=== PATIENT | female | born 1960 | race Caucasian/White ===

== ENCOUNTER 2016-04-23 05:00 | Inpatient (IN) | payer MEDICAID ==
[2016-04-22 15:50] LABS: BASOPHILS 0.3 % (0.0-2.0); EOSINOPHILS 0.9 % (0-7); HEMATOCRIT 39.8 % (36.0-48.0); HEMOGLOBIN 13.5 g/dL (12-16); IMMATURE GRANULOCYTES 0.1 % (0-5); LYMPHOCYTES 36.5 % (15-50); MCH 31.4 pg (26.0-34.0); MCHC 33.9 g/dL (31.0-37.0); MCV 92.6 fL (80.0-100.0); MEAN PLATELET VOLUME 11.2 fL (7.4-10.4); MONOCYTES 8.2 % (2-11); PLATELET COUNT 232 10x3/uL (130-400); RDW 12.9 % (11.5-14.5); WBC 10.9 10x3/uL (4.8-10.8)
[2016-04-22 15:53] LABS: APPEARANCE HAZY (CLEAR); BILIRUBIN NEGATIVE (NEGATIVE); COLOR YELLOW (YELLOW); GLUCOSE NEGATIVE (NEGATIVE); KETONE NEGATIVE (NEGATIVE); LEUKOCYTE ESTERASE 2+ (NEGATIVE); NITRITE POSITIVE (NEGATIVE); PROTEIN NEGATIVE (NEGATIVE); SPECIFIC GRAVITY 1.015 (1.005-1.020); UROBILINOGEN NORMAL (NORMAL)
[2016-04-22 15:54] LABS: RED CELLS - URINE 0-5 /hpf (0-5); WHITE CELLS - URINE 25-50 /hpf (0-5)
[2016-04-22 15:55] LABS: BACTERIA MANY /hpf (NONE SEEN)
[2016-04-22 16:14] LABS: CALC OSMOLALITY 283 mosm/kg (275-300); CALCIUM 9.6 mg/dL (8.5-10.1); CARBON DIOXIDE 27.8 mmol/L (21.0-32.0); CHLORIDE - SERUM 105 mmol/L (98-107); CREATININE - SERUM 0.8 mg/dL (0.6-1.3); GLUCOSE 101 mg/dL (74-106); POTASSIUM - SERUM 3.7 mmol/L (3.5-5.1); SODIUM 141 mmol/L (136-145); UREA NITROGEN 22 mg/dL (7-18); eGFR NON AFRICAN AMERICAN 79 mL/min (90-120)
[~2016-04-23] VITALS: Ht 157.5 cm; Wt 93.2 kg
[2016-04-23] VITALS (15 sets, daily range): BP systolic 116–169; BP diastolic 68–98; Ht 157.5 cm; Wt 93.2 kg
[~2016-04-23 05:00] MED LIST: AMBIEN10 MG PO; ASPIRIN81 MG PO; HYDROCODONE-APA1 TAB PO; METOPROLOL TART50 MG PO; NORVASC2.5 MG PO; NORVASC5 MG PO; PRINIVIL20 MG PO; SOMA350 MG PO; XANAX0.5 MG PO; ZETIA10 MG PO
--- NOTE | 2016-04-23 10:39 | HP ---
PATIENT: MAY MARROQUIN MEDICAL RECORD: [id number] ACCOUNT: [id number] LOC[place] [place] [place] 64 ADMISSION DATE: 04/23/16 HISTORY AND PHYSICAL EXAMINATION CHIEF COMPLAINT: Neck pain. HISTORY OF PRESENT ILLNESS: This is a relatively healthy white female who presented to our office with persistent neck pain and left upper extremity pain associated with paraesthesia. She rates her pain 10/10. She describes it as a deep burning pain, left arm is worse than right. SHE IS INTOLERANT TO NEEDLES, has a phobia regarding that and has been unable to have any injections. She is a patient of Dr. Mosquera and she has generalized anxiety disorder. She has not had any physical therapy or chiropractic treatment. She has had this pain ongoing since 1999, but it became much worse in December with no precipitating event. PAST MEDICAL HISTORY: Significant for general anxiety disorder, hypertension, blurry vision and occasional dizziness. PAST SURGICAL HISTORY: Hysterectomy and cholecystectomy. FAMILY HISTORY: Her father of a heart attack. Her mother of liver disease. SOCIAL HISTORY: She is single, her grandchildren live with her. ALLERGIES: PENICILLIN. MRI was done at [facility]. She has her disk and is to bring it with her. She has multilevel degenerative disc disease C5-C6, C6-C7 with a herniated disc at C5-C6 and C6-C7. REVIEW OF SYSTEMS: She denies any recent chest pain, shortness of breath or weight changes. PHYSICAL EXAMINATION: HEENT: She is normocephalic. Pupils are equal, reactive to light. CHEST: Clear bilaterally to auscultation. HEART: S1 and S2. ABDOMEN: Soft, bowel sounds present. NECK: He has decreased range of motion. EXTREMITIES: She has bilateral equal electronics tester, dorsiflexion and plantarflexion are intact. IMPRESSION: Cervical radiculopathy. PLAN: C5-C6, C6-C7 ACDF with [place]. The risk and benefits of surgery have been explained to her in detail. Risks include bleeding, failure to relieve symptoms, problems with anesthesia and . Time was allowed for questions, questions were answered. The patient wishes to proceed with surgery. TRANSINT:[id number] Voice Confirmation ID: [id number] DOCUMENT ID: [id number] HISTORY AND PHYSICAL [id number] MAY MARROQUIN Dictated By: OLGA ROJAS I have interviewed/examined the above patient and agree with these documented findings. ANATOLY ALONSO MD at 1039 at 1224 CC: [id number] DICTATION DATE: 04/22/16 1439 INDUCTION HEAT TREATER: 04/22/16 1455 ADM IN [id number] [place] [address]
--- NOTE | 2016-04-23 11:30 | NUR ---
RECIEVED PT TO ROOM FROM RECOVERY. CONNECTED TO ICU MONITORS. NO SIGNS OF ACUTE DISTRESS NOTED AT THIS TIME. C-COLLAR IN PLACE. INCISION TO NECK WELL APPROXIMATED. NO BLEEDING NOTED. WILL CONTINUE TO ASSESS FOR CHANGES. CALL LIGHT IN REACH. BED IN LOW POSITION. BED ALARM ON.
--- NOTE | 2016-04-23 13:00 | NUR ---
PT REMAINS STABLE. C/O SOME PAIN IN NECK. REPOSITIONED PILLOW FOR COMFORT. C-COLLAR ADJUSTED.
--- NOTE | 2016-04-23 15:00 | NUR ---
FAMILY AT BEDSIDE. DENIES NEEDS AT THIS TIME.
--- NOTE | 2016-04-23 15:11 | NUR ---
* Is the patient Alert and Oriented? Yes 0 * How many steps to enter\exit or inside your home? 4 0 * PCP DR. KAYE 0 * Pharmacy [facility]. 0 * Preadmission Environment Home with Family 0 * ADLs Independent 0 * Equipment None 0 * List name and contact numbers for known caregivers / representatives who currently or will assist patient after discharge: DAUGHTER: KIANNA PORTILLO [phone] * Community resources currently utilized None 0 * Additional services required to return to the preadmission environment? No 0 * Can the patient safely return to the preadmission environment? Yes 0 * Has this patient been hospitalized within the prior 30 days at any hospital? No 0 PATIENT STATES SHE LIVES AT HOME WITH HER DAUGHTER. PATIENT WAS INDEPENDENT PRIOR TO COMING TO THE HOSPITAL. PATIENT STATES HER DAUGHTER, KIANNA WILL BE AVAILABLE TO DRIVE HER HOME AT DISCHARGE. PATIENT 'S PCP IS DR. KAYE. SHE GETS HER MEDS AT [facility] ON [address]. SHE DENIES USE OF ANY EQUIPMENT. SHE DENIES EVER HAVING HOME HEALTH CARE. PATIENT STATES THERE ARE 4 STEPS TO ENTER HER HOME. PATIENT DENIES ANY DISCHARGE NEEDS AT THIS TIME.
--- NOTE | 2016-04-23 19:15 | NUR ---
REPORT RECIEVED, SHIFT ASSESSMENT COMPLETE, PT IS ALERT AND ORIENTED, ON RA WITH 97% O2 SAT. LUNGS CLEAR IN ALL LOBES, S1S2, CM-SB, PATENT LEFT FA PIV S/L, INCISION TO RIGHT NECK IS CDI, DRSG TO RIGHT NECK BROOKE DRAIN IS CDI, BLOODY DRAINAGE IN DRAIN, SOFT COLLAR NOTED, ABDOMEN IS SOFT AND ROUND WITH ACTIVE BS, BP AT BEDSIDE, NO EDEMA NOTED, ALL PPP, VSS, CALL LIGHT IN REACH
--- NOTE | 2016-04-23 20:40 | NUR ---
PT C/O OF 8/10 INCISIONAL PAIN, ORDERED PAIN MED GIVEN
--- NOTE | 2016-04-23 21:15 | NUR ---
PAIN NOW 2/10, PT RESTING COMFORTABLY
--- NOTE | 2016-04-23 23:11 | NUR ---
REASSESSMENT COMPLETE, NO CHANGES NOTED, PT RESTING AT THIS TIME, VSS, CALL LIGHT IN REACH
[2016-04-24] VITALS (9 sets, daily range): BP systolic 123–168; BP diastolic 79–99
--- NOTE | 2016-04-24 01:20 | NUR ---
PT RESTING AT THIS TIME, WILL CON'T TO MONITOR
--- NOTE | 2016-04-24 03:24 | NUR ---
REASSESSMENT COMPLETE, NO CHANGES NOTED, PT C/O OF 9/10 PAIN, ORDERED PAIN MED GIVEN,
--- NOTE | 2016-04-24 05:10 | NUR ---
PT RESTING AT THIS TIME, WILL CON'T TO MONITOR
[2016-04-24] MEDS ORDERED: ROBAXIN-750750 MG PO (06:53)
[2016-04-24] MEDS ORDERED: VALIUM5 MG PO (06:55)
[2016-04-24] MEDS ORDERED: HYDROCODON-ACE1 EAC7 PO (06:55)
--- NOTE | 2016-04-24 07:00 | OP ---
PATIENT NAME: MAY MARROQUIN MEDICAL RECORD: [id number] :64 LOCATION:[facility] D.2307 ADMISSION DATE:04/23/16 SURGEON: ANATOLY ALONSO MD DATE OF OPERATION: 04/23/2016 PREOPERATIVE DIAGNOSIS: Bilateral C6 and C7 radiculopathy. POSTOPERATIVE DIAGNOSIS: Bilateral C6 and C7 radiculopathy. PROCEDURES PERFORMED: Anterior approach to the cervical spine for: 1. Application of intervertebral biomechanical devices at C5-C6 and C6-C7. 2. Anterior plate and bilateral vertebral body screw fixation from C5 to C7. 3. Discectomy with bilateral foraminotomies at C5-C6 and C6-C7. 4. Anterior interbody arthrodesis at C5-6 and C6-C7 with endplate preparation. 5. Use of intraoperative microscope with microdissection technique. ESTIMATED BLOOD LOSS: 50 mL. NEURO MONITORING: No changes in SSEPs from baseline. IMPLANTS: [place] anterior cervical: 1. A 6 mm x 14 mm x 16 mm x 4 degree AVS cage at C5-C6. 2. A 5 mm x 14 mm x 16 mm x 4 degree AVS cage at C6-C7. 3. A 32-mm Tempus plate. 4. A 16-mm variable angle self-drilling screws at C5 and C6 and fixed angle screws of the same size at C7. COMPLICATIONS: None apparent. HISTORY OF PRESENT ILLNESS: May Marroquin is a very pleasant 55-year-old female who presented to clinic with progressive severe upper extremity pain consistent with C6 and C7 radiculopathy, left side greater than right. This is refractory to conservative therapy. Imaging was consistent with bulging disc at C5, C6, C7 with resulting bilateral neural foraminal stenosis. I had an extensive discussion with her regarding her presentation and imaging findings and the options for continued conservative therapy versus operative decompression in the form of C5-C6 and C6-C7 ACDF. She ultimately chose to undergo the operative decompression. I had an extensive discussion with her regarding the risks and benefits of each course of therapy and the risks and benefits of surgery including malpositioned hardware, damage to surrounding structures including the food pipe, the wind pipe, the carotid bundle and the need for further surgery. She understood and freely consented to go forth with surgery. DESCRIPTION OF PROCEDURE: Ms. Marroquin was identified by the anesthesia team and transferred to the operative theater. She was gently transferred to a supine position on the operative bed where general endotracheal anesthesia commenced and all appropriate lines and tubes were placed. A scapular roll was placed underneath the scapula and her head was placed in extension. Shoulders were taped down to facilitate visibility on lateral fluoroscopy. Using lateral fluoroscopy, incision of the appropriate level was marked. The area was prepped and draped. A timeout was performed prior to initiation of procedure and agreed to by those present. The patient did receive 10 mg IV dexamethasone as well as IV vancomycin prior to start of the procedure. A #10 blade was used to take the skin incision down to the level of the subcutaneous fat after infiltration of OPERATIVE REPORT [id number] MAY MARROQUIN local anesthetic. Bovie electrocautery was used to transect the platysma. Metzenbaum scissors were used to undermine the platysma rostrally and caudally. The fascial plane between the carotid bundle laterally, and the tracheoesophageal bundle medially was identified and bluntly dissected down to the anterior cervical spine. A snap was affixed to C5-C6 disc space and confirmed to be at the correct disc space on lateral fluoroscopy. The low power Bovie electrocautery was used to outline the disc and to reflect the longus colli bilaterally and cleaned out the appropriate portions of the C5, C6 and C7 vertebral bodies. A self-retaining TrimLine retractor was then seated deep to the longus colli. [place] distraction pins were placed under lateral fluoroscopy and a square cut was made in the disc space. The microscope was brought in the field and used to plate fixation later in the case. Initial discectomy was performed with pituitary rongeurs and [place] distraction was then gently deployed. Using a combination of sood elevator, pituitary rongeurs, curettes and Kerrison rongeurs, the discectomy and bilateral foraminotomy was performed. The PLL was resected. Small amount of epidural hemorrhage was controlled with Surgiflo hemostatic matrix. There was no significant hemorrhage. Prior to placement of the 6 mm trial graft, which was found to be the appropriate size on the lateral x-ray. The 6 mm graft was packed with Vitoss bone allograft and then inserted under lateral fluoroscopy into the appropriate depth. The C5 [place] pin was removed and a small amount of bone wax was used to fill the bony defect to reduce and stop the resulting small hemorrhage. The [place] pin was repositioned under lateral fluoroscopy to the C7 vertebral body. The self-retaining retractors had been moved inferiorly and seated deep to the longus colli for this level. The C7 [place] pin was then placed under lateral fluoroscopy. The microdiscectomy at C6-C7 proceeded in the exact same fashion and the PLL was resected again. A blunt nerve hook was again used to confirm appropriate bilateral foraminotomies at the end of the discectomy. The endplates at both levels were prepared for arthrodesis. Now, stripping away of all soft tissue. The PLL again was resected at C6-C7 to further the decompression. Surgiflo hemostatic matrix was used to control small amount of epidural hemorrhage and rinsed away as occurred at the previous level. A 5-mm trial was placed at this level and found to be adequate under lateral fluoroscopy. The 5-mm cage was packed with Vitoss bone graft and inserted under lateral fluoroscopy to the appropriate depth. The [place] pins were sequentially removed and bone wax placed in their bony defects. The microscope was taken out of field and the 32-mm Tempus plate was then lined and positioned to the appropriate position on lateral fluoroscopy. Using the drill guide and an 11 mm drill with variable angle occurring at C5 and C6 and fixed angle occurring at C7, the screw tracts were developed with the drill. The screws were placed at each level and seated down to their final depth. Screw placement was confirmed to be appropriate on lateral fluoroscopy. The screw heads were confirmed to be seated to the appropriate depth and the locking mechanism was employed and double checked to be activated at each level. A copious amount of irrigation was used in the operative field . There was no significant hemorrhage prior to closure. The self-retaining retractors were removed and the area was again appreciated for hemorrhage and finally irrigated. A 10-Turkish round drain was tunneled away from the incision and cut to size and laid over the hardware. A 3-0 Vicryls were used in interrupted fashion to reapproximate the platysma muscle. The skin was closed with a running subcuticular 4-0 Monocryl and the drain was sutured into place with 3-0 Vicryl suture. The area was cleaned with a wet and dry dressing and Dermabond skin glue was then placed. Drapes were taken down and the patient was turned to the anesthesia team for reversal and extubation. There were no departure from the SSEP baselines throughout the procedure. There OPERATIVE REPORT [id number] MAY MARROQUIN were no apparent complications. All sponge and needle counts were correct times 2 at the end of the case. I updated the patient's cousin in the waiting room immediately after the procedure regarding the course of the procedure and all questions were answered. TRANSINT:[id number] Voice Confirmation ID: [id number] DOCUMENT ID: [id number] ANATOLY ALONSO MD at 0700 CC: [id number] DICTATION DATE: 04/23/16 1051 AUTOMOTIVE TECHNICIAN INSTRUCTOR: 04/23/16 1201 ADM IN [facility] [address] [id number]
--- NOTE | 2016-04-24 13:33 | NUR ---
0800 AM ASSESMENT IS COMPLETE SEE FLOW SHEET FOR FINDINGS.. PT IS AWAKE AND ALERT.. DR ALONSO HAS BEEN IN AND SEEN PT.. DC ORDERS WRITTEN.. PT STATES THAT HER TRANSPORTATION WOULD BE HERE TO PICK HER UP AFTER LUNCH.. 0900 WITHOUT VISITORS REGULAR DIET SERVED AND PT FEEDING SELF.. MEDS GIVEN.. 1100 DISCHRGE PAPERWORK INITIATED.. PT BROOKE DRAIN DCd .. 1200 LUNCH SERVED AND PT IS FEEDING SELF.. 1300 PIV DCd AND DISCHARGE PAPERS SIGNED BY PT .. PT STATES HER RIDE WILL BE HERE AT 1330..
--- NOTE | 2016-04-24 14:45 | NUR ---
1430 PT FAMILY HERE TO TRANSPORT PT HOME IN PVT CAR.. TRANSPORTED TO FRONT OF [facility] IN WHEELCHAIR..
== END 2016-04-24 14:30 | disposition home or self-care (01) | DRG 473 ==
LOC: D.SDCHOLD 05:00 → D.ICU 05:00 → D.SDCHOLD 07:30 → D.ICU 11:36
PROVIDERS: ADMIT Neurological Surgery
PROC: 0RB30ZZ Excision of Cervical Vertebral Disc, Open Approach (ICD-10-PCS; 2016-04-23)
PROC: 0RG20A0 Fusion of 2 or more Cervical Vertebral Joints with Interbody Fusion Device, Anterior Approach, Anterior Column, Open Approach (ICD-10-PCS; principal; 2016-04-23 07:30)
PROC: 0RG20K0 Fusion of 2 or more Cervical Vertebral Joints with Nonautologous Tissue Substitute, Anterior Approach, Anterior Column, Open Approach (ICD-10-PCS; 2016-04-23 07:30)
DX: M50.122 Cervical disc disorder at C5-C6 level with radiculopathy (principal); M50.123 Cervical disc disorder at C6-C7 level with radiculopathy; I10 Essential (primary) hypertension; F41.1 Generalized anxiety disorder

== ENCOUNTER → 2017-01-22 11:16 | Outpatient (CLI) | payer MEDICAID ==
[2016-04-23 12:23] VITALS: BMI 37.6
[~2017-01-22 11:16] MED LIST changes: +HYDROCODON-ACE1 EAC7 PO; +ROBAXIN-750750 MG PO; +VALIUM5 MG PO
== END | disposition home or self-care (01) ==
LOC: D.MRI 11:16
DX: M54.5 Low back pain (principal)

== ENCOUNTER 2017-06-10 10:23 | Outpatient (CLI) | payer MEDICAID ==
[~2017-06-10] VITALS: Ht 157.5 cm; Wt 62.7 kg
--- NOTE | ~2017-06-10 | OP ---
PATIENT NAME: MAY MARROQUIN MEDICAL RECORD: [id number] :64 LOCATION:D.CAT ADMISSION DATE: SURGEON: LARS ROSALES MD DATE OF OPERATION: 06/10/2017 PROCEDURE: Left heart catheterization, selective coronary angiography, right femoral artery approach (unable to perform radial secondary to radial loop). CATHETERS: A 5-Cameroonian sheath, 5/4 left and right Cherelle, 5/4 pig. The procedure was well tolerated. The patient returned to mckeon, sheath removed. ExoSeal device placed. FINDINGS: Left ventriculography in 30-degree NG view: Normal wall motion, normal systolic function. CORONARY ANATOMY. LEFT MAIN: Left main is free of disease. LAD: Free of disease in the diagonal system. CIRCUMFLEX: Free of disease in the marginal system. RIGHT CORONARY ARTERY: Dominant artery, gives rise to PDA, free of disease. IMPRESSION: Normal systolic function. Normal coronary anatomy. TRANSINT:[id number] Voice Confirmation ID: [id number] DOCUMENT ID: [id number] LARS ROSALES MD at 1341 CC: [id number] DICTATION DATE: 06/10/17 1327 WAITER/WAITRESS THIRD CLASS: 06/10/17 1356 DEP CLI 06/10/17 [facility] [address] [place] [address]
--- NOTE | ~2017-06-10 | HEMODYNAMI ---
PATIENT:MAY MARROQUIN MEDICAL RECORD: [id number] : 64 LOCATION:[facility] ADMISSION DATE: 06/10/17 Generatedon:06/10/201713:25 Patient name: MAY MARROQUIN Patient #: [id number] SSN: : 1960 Date of study: 06/10/2017 Page: Of Hemodynamic Procedure Report Patient Data Patient Demographics Procedure consent was obtained First Name: MAY Gender: Female Last Name: CARA : 1960 Patient #: [id number] Age: 56 year(s) Race: Unknown Additional ID: [id number] Contact details [address]: [address] [place] [address] [place] State: [place] City: [place] Zip code: [address] Past Medical History Allergies Allergen Reaction Date Comments Reported Other allergy 06/10/2017 PCN Admission Admission Data Admission Date: 06/10/2017 Admission Time: 10:23 Height (in.): 5.2 BSA: 0.34 (m2) Height (cm.): 13.21 BMI: 6136.26 (kg/m2) Weight (lbs.): 236 Weight (kg.): 107.05 Lab Results Lab Result Date: 06/10/2017 Lab Result Time: 0:00 Biochemistry Name Units Result Min Max BUN mg/dl 10 --(-*--)-- 7 18 Creatinine mg/dl 0.9 --(-*--)-- 0.6 1.3 CBC Name Units Result Min Max Hemoglobin g/dl 12.9 -*(----)-- 13.5 17.5 Procedure Procedure Types Cath Procedure Diagnostic Procedure [facility] w/Coronaries Sedation Charges Moderate Sedation up to 15 minutes Procedure Description Procedure Date Procedure Date: 06/10/2017 Procedure Start Time: 13:07 Procedure End Time: 13:25 Procedure Staff Name Function Bayron Ordonez MD Performing Physician Raquel Eastman RT Scrub Paul Miguel RN Nurse Amairani Folwer RT Monitor Procedure Data Cath Procedure Fluoroscopy Diagnostic fluoroscopy Total fluoroscopy Time: 1.8 time: 1.8 min min Diagnostic fluoroscopy Total fluoroscopy dose: 517 dose: 517 mGy mGy Contrast Material Contrast Material Type Amount (ml) Isovue 300 55 Entry Location Entry Primary Successful Side Size Upsize Upsize Entry Closure Gibson ccessful Closure Location (Fr) 1 (Fr) 2 (Fr) Remarks Device Remarks Radial Right 6 Fr Mechanical artery Short Compression Femoral Right 5 Fr Exoseal artery Estimated blood loss: 5 ml Diagnostic catheters Device Type Used For End Catheter Placement DIAGNOSTIC Bettendorf 110cm 5 Procedure Fr catheter ([id number]) MULTIPACK JL 4.0 5Fr Left Coronary catheter Angiography MULTIPACK 3DRC 5Fr Right Coronary catheter Angiography MULTIPACK Pigtail 5 Fr LV Angiography catheter Procedure Complications No complications Procedure Medications Medication Administration Route Dosage 0.9% NaCl I.V. 100 ml/hr Oxygen NC 2 l/min Heparin Flush Bag added to field 2 bags (1000units/500ml NS) Lidocaine 2% added to field 20 Radial Cocktail added to field 1 syringe (Verapomil 2mg/Nitro 400mcg/Heparin 1500units) Versed I.V. 2 mg Fentanyl I.V. 100 mcg Versed I.V. 2 mg Fentanyl I.V. 100 mcg Versed I.V. 2 mg Fentanyl I.V. 100 mcg Radial Cocktail I.A. 1 syringe (Verapomil 2mg/Nitro 400mcg/Heparin 1500units) Versed I.V. 2 mg Fentanyl I.V. 100 mcg Versed I.V. 2 mg Hemodynamics Rest BSA: 0.34 (m2) HGB: 12.9 (g/dl) O2 Consumption: Estimated: 32.73 (ml/min) O2 Con sumption indexed: Estimated:96.26 (ml/min/m) Heart Rate: 69 (bpm) Pressure Samples Time Site Value (mmHg) Purpose Heart Use Rate(bpm) 13:18 LV 114/17,19 EDP 85 13:18 AO 139/90(110) Pullback 83 13:18 LV 109/12,14 Pullback 83 Gradients Valve Time Site 1 Site 2 Mean SEP/DFP Peak To Heart Use (mmHg) (sec/min) Peak Rate (mmHg) (bpm) Aortic 13:18 LV AO 0 83 109/12,14 139/90(110) Calculations Valve P-P Mean Valve Index Valve Source Name Gradient Area Flow (cm2) Aortic 0 0 Snapshots Pre Cath Intra NCS Post Cath Vital Signs Time Heart Resp SPO2 etCO2 NIBP (mmHg) Rhythm Pain Sedation Rate (ipm) (%) (mmHg) Status Level (bpm) 12:54:35 78 15 95 32.5 136/79(115) NSR 0 (11) 10(A) , No pain 12:59:26 78 13 94 37 120/81(100) NSR 0 (11) 10(A) , No pain 13:04:15 77 21 94 38.5 121/73(100) NSR 0 (11) 10(A) , No pain 13:09:01 81 13 97 16.6 135/79(119) NSR 0 (11) 10(A) , No pain 13:13:50 86 13 96 19.6 122/74(94) NSR 0 (11) 10(A) , No pain 13:18:37 71 17 92 23.4 110/77(101) NSR 0 (11) 10(A) , No pain 13:23:26 83 15 96 27.2 135/70(98) NSR 0 (11) 10(A) , No pain Medications Time Medication Route Dose Verified Delivered Reason Notes Effectiveness by by 12:58:03 0.9% NaCl I.V. 100 Paul Paul Per ml/hr Lamont Miguel physician RN RN 12:58:17 Oxygen NC 2 l/min Paul Paul Per Lamont Miguel physician RN RN 12:58:29 Heparin Flush added 2 bags Paul Paul used for Bag to Lamont Miguel procedure (1000units/500ml RN RN NS) 12:58:44 Lidocaine 2% added 20ml Paul Paul for local to vial Lorigan Lorigan anesthetic field DUNBAR RN 12:58:55 Radial Cocktail added 1 Paul Paul used for (Verapomil to syringe Lorigan Lorigan procedure 2mg/Nitro field DUNBAR RN 400mcg/Heparin 1500units) 12:59:04 Versed I.V. 2 mg Paul Paul for sedation Lamont Miguel RN RN 12:59:14 Fentanyl I.V. 100 mcg Paul Paul for sedation Lamont Miguel RN RN 13:03:06 Versed I.V. 2 mg Paul Paul for sedation Lamont Miguel RN, RN 13:03:12 Fentanyl I.V. 100 mcg Paul Paul for sedation Lamont Miguel RN, RN 13:07:09 Versed I.V. 2 mg Paul Paul for sedation Lamont Miguel RN, RN 13:07:16 Fentanyl I.V. 100 mcg Paul Paul for sedation Lamont Miguel RN, RN 13:08:15 Radial Cocktail I.A. 1 Paul Bayron for (Verapomil syringe Lorigan José Luis vasodilation 2mg/Nitro RN 400mcg/Heparin 1500units) 13:12:07 Versed I.V. 2 mg Paul Paul for sedation Lamont Miguel RN, RN 13:13:17 Fentanyl I.V. 100 mcg Paul Paul for sedation Lamont Miguel RN, RN 13:22:12 Versed I.V. 2 mg Paul Paul for sedation Lamont Miguel RN, RN Procedure Log Time Note 12:29:37 Time tracking: Regular hours 12:29:42 Plan of Care:Hemodynamics will remain stable., Cardiac rhythm will remain stable., Comfort level will be maintained., Respiratory function will remain adequate., Patient/ family verbilizes understanding of procedure., Procedure tolerated without complication., Recovers from procedure without complications.. 12:29:43 Signed procedure consent form obtained from patient. 12:29:58 H&P Date Dictated: 05/21/2017 Within 30 days and on chart., H&P Addendum completed by physician on day of procedure. (MUST COMPLETE FOR ALL OUTPATIENTS). 12:30:41 Patient allergic to Other allergyPCN 12:31:00 Patient Height : 5.2 inches 12:31:03 Patient Weight : 236 lbs 12:34:32 Lab Result : Creatinine 0.9 mg/dl 12:34:32 Lab Result : BUN 10 mg/dl 12:34:32 Lab Result : Hemoglobin 12.9 g/dl 12:36:05 Paul Miguel RN sent for patient. Start room use. 12:42:42 Patient received from Pre/Post Procedure Room to CCL 1 Alert and oriented. Tansferred to table in Supine position. 12:42:43 Warm blankets applied, and aniket hugger turned on for patient comfort. 12:42:43 Correct patient and procedure confirmed by team. 12:42:45 ECG and BP/O2 sat monitors applied to patient. 12:53:33 Vital chart was started 12:54:17 Rhythm: sinus rhythm 12:54:18 Full Disclosure recording started 12:54:20 Pre-procedure instructions explained to patient. 12:54:20 Pre-op teaching completed and patient verbalized understanding. 12:54:23 Family in patients room. 12:54:24 Patient NPO since Midnight. 12:54:26 Is the patient allergic to Iodine/contrast media? No. 12:54:31 Is patient on blood thinner?No 12:54:32 Patient diabetic? No. 12:54:36 Previous problem with sedation/anesthesia? No ? 12:54:37 Snore? Yes 12:54:37 Sleep apnea? No 12:54:38 Deviated septum? No 12:54:39 Opens mouth fully? Yes 12:54:40 Sticks out tongue? Yes 12:54:41 Airway obstruction? No ? 12:54:43 Dentures? No ? 12:54:45 Pre procedure: right dorsailis pedis pulse 2+ Normal; easily identifiable; not easily obliterated 12:54:47 Modified Parth's test Ulnar < 7 seconds 12:54:49 Patient pain scale 0/10 ?. 12:54:57 IV patent on arrival in left forearm with 0.9% NaCl at [facility]. 12:54:59 Lab results completed and on chart. 12:55:02 Right Radial & Right Groin area was prepped with chlora-prep and draped in sterile fashion 12:55:03 Alarms reviewed by R. N. 12:55:04 Sharps counted by scrub and verified by R.N. 12:55:06 Use device set Radial Dx or PCI 12:55:07 ACIST Syringe (19970) opened to sterile field. 12:55:07 Medline Cath Pack ([id number]) opened to sterile field. 12:55:08 Bag Decanter (2002) opened to sterile field. 12:55:08 SHEATH 6FR Slender ([id number]) opened to sterile field. 12:55:08 DIAGNOSTIC WIRE .035 260cm J wire (538126) opened to sterile field. 12:55:09 ACIST Hand Control (49125) opened to sterile field. 12:55:09 ACIST Manifold (87883) opened to sterile field. 12:55:10 Tegaderm 4 x 4 (1626W) opened to sterile field. 12:55:10 MBrace Wrist Support ([id number]) opened to sterile field. 12:56:52 Baseline sample Acquired. 12:57:01 Zero performed for pressure channel P1 12:58:03 0.9% NaCl 100 ml/hr I.V. was administered by Paul Miguel RN; Per physician; 12:58:17 Oxygen 2 l/min NC was administered by Paul Miguel RN; Per physician; 12:58:29 Heparin Flush Bag (1000units/500ml NS) 2 bags added to field was administered by Paul Miguel RN; used for procedure; 12:58:36 Final Timeout: patient, procedure, and site verified with staff and physician. All members of the team are in agreement. 12:58:39 Right Radial site verified by team. 12:58:41 Physical assessment completed. ASA score P 2 - A patient with mild systemic disease as per Bayron Ordonez MD. 12:58:44 Lidocaine 2% 20ml vial added to field was administered by Paul Miguel RN; for local anesthetic; 12:58:45 Sedation plan: IV Moderate Sedation Medication:Versed, Fentanyl 12:58:55 Radial Cocktail (Verapomil 2mg/Nitro 400mcg/Heparin 1500units) 1 syringe added to field was administered by Paul Miguel RN; used for procedure; 12:59:04 Versed 2 mg I.V. was administered by Paul Miguel RN; for sedation; 12:59:14 Fentanyl 100 mcg I.V. was administered by Paul Miguel RN; for sedation; 13:03:06 Versed 2 mg I.V. was administered by Paul Miguel RN; for sedation; 13:03:12 Fentanyl 100 mcg I.V. was administered by Paul Miguel RN; for sedation; 13:07:04 Procedure started. 13:07:09 Versed 2 mg I.V. was administered by Paul Miguel RN; for sedation; 13:07:09 Local anesthetic to right radial artery with Lidocaine 2% by Bayron Ordonez MD.INITIAL ACCESS ONLY 13:07:16 Fentanyl 100 mcg I.V. was administered by Paul Miguel RN; for sedation; 13:08:15 Radial Cocktail (Verapomil 2mg/Nitro 400mcg/Heparin 1500units) 1 syringe I.A. was administered by Bayron Ordonez MD; for vasodilation; 13:08:31 A 6 Fr Short sheath was inserted into the Right Radial artery 13:08:53 A DIAGNOSTIC Bett[place]f 110cm 5 Fr catheter ([id number]) was advanced over the wire and used for Procedure. Patient has radial loop 13:12:04 Catheter removed. 13:12:07 Versed 2 mg I.V. was administered by Paul Miguel RN; for sedation; 13:12:09 Local anesthetic to right femoral artery with Lidocaine 2% by Bayron Ordonez MD.ADDITIONAL ACCESS 13:12:14 Use device set Multipack Set 13:12:17 DIAGNOSTIC Multipack 5Fr catheter set ([id number]) opened to sterile field. 13:12:23 SHEATH 5FR Burns (IAZ217) opened to sterile field. 13:13:10 A 5 Fr sheath was inserted into the Right Femoral artery 13:13:17 Fentanyl 100 mcg I.V. was administered by Paul Miguel RN; for sedation; 13:13:17 A MULTIPACK JL 4.0 5Fr catheter was advanced over the wire and used for Left Coronary Angiography. 13:15:42 Catheter removed. 13:16:46 A MULTIPACK 3DRC 5Fr catheter was advanced over the wire and used for Right Coronary Angiography. 13:16:56 Catheter removed. 13:17:03 A MULTIPACK Pigtail 5 Fr catheter was advanced over the wire and used for LV Angiography. 13:18:31 LV gram done using NG 13:18:32 LV hemodynamics recorded. 13:18:34 Injector settings: Ml/sec: 10, Volume: 20, 13:18:41 EF : 55 % 13:18:50 Catheter removed. 13:18:58 Sheath removed intact; hemostasis achieved with Mechanical Compression to the Right Radial artery. 13:19:14 EXOSEAL 5Fr (EX500) opened to sterile field. 13:19:17 Procedure ended.(Physican Out) 13:19:56 Sheath removed intact; hemostasis achieved with Exoseal to the Right Femoral artery. 13:20:05 Fluoroscopy time 01.80 minutes. 13:20:09 Fluoroscopy dose: 517 mGy 13:20:09 Flurop Dose total: 517 13:20:12 Contrast amount:Isovue 300 55ml. 13:20:13 Sharps counted by scrub and verified by R.N. 13:20:17 TR band inflated with 12cc of air. 13:20:18 Insertion/operative site no bleeding no hematoma. 13:20:27 TR BAND Standard ([id number]) opened to sterile field. 13:22:12 Versed 2 mg I.V. was administered by Paul Miguel RN; for sedation; 13:22:27 Post-op/insertion site Right Femoral artery dressed using a 4 x 4 and Tegaderm. 13:22:31 Post right femoral artery:stable, clean and dry 13:22:36 Post right radial artery:stable, clean and dry 13:22:38 Post Procedure Pulses reassessed and unchanged 13:22:41 Post-procedure physical assessment completed. ASA score P 2 - A patient with mild systemic disease as per Bayron Ordonez MD. 13:22:43 Post procedure rhythm: unchanged. 13:22:46 Estimated blood loss: 5 ml 13:22:47 Post procedure instruction explained to patient.Patient verbalizes understanding. 13:22:48 Patient needs reinforcement of post procedure teaching. 13:22:57 Procedure type changed to Cath procedure, Diagnostic procedure, LHC, LHC w/Coronaries, Sedation Charges, Moderate Sedation up to 15 minutes 13:23:02 Procedure Complication : No complications 13:23:04 See physician's report for complete and final results. 13:24:48 Procedure and supply charges have been captured, reviewed, submitted and are correct. 13:24:49 Vital chart was stopped 13:24:51 Report given to Pre/Post Procedure Room. 13:24:58 Patient transfered to Pre/Post Procedure Room with Stretcher. 13:25:00 Procedure ended. 13:25:00 Full Disclosure recording stopped 13:25:10 End room use (Document Last) Device Usage Item Name Manufacture Quantity Catalog Hospital Part Current Minima l Lot# / Number Charge Number Stock Stock Serial# Code [facility] 1 48273 668175 784059 828614 20 Syringe SomethingIndie (87715) Systems Inc Medline Cath Cardinal 1 [id number] 688506 27908 336710 5 Pack Green Is Good ([id number]) Bag Decanter Microtek 1 674709 27767 174436 5 () Medical Inc. SHEATH 6FR Terumo 1 [id number] 616502 990304 969252 40 Slender ([id number]) DIAGNOSTIC St Kevin 1 510271 437700 055559 298468 30 WIRE .035 260cm J wire (216928) ACIST Hand Acist 1 42971 590047 146672 136434 5 Control Medical (43455) Systems Inc ACIST Acist 1 68557 144298 346278 426726 5 Manifold Medical (98405) Systems Inc Tegaderm 4 x 3M 1 1626W 085565 464876 476964 5 4 (1626W) MBrace Wrist Advanced 1 140-0250-00 611867 50406 793109 5 Support Vascular ([id number]) Dynamics DIAGNOSTIC Terumo 1 40-0113 648151 083576 442391 5 Bettendorf 110cm 5 Fr catheter (934298) DIAGNOSTIC Cardinal 1 [id number] 688611 78969 442308 30 Multipack Health 5Fr catheter set (KQ2989) SHEATH 5FR Terumo 1 NJE611 362163 216873 926268 40 Burns (AIM130) MULTIPACK JL Cardinal 1 856969 5 4.0 5Fr Health catheter MULTIPACK Cardinal 1 228685 5 3DRC 5Fr Health catheter MULTIPACK Cardinal 1 991419 5 Pigtail 5 Fr Health catheter EXOSEAL 5Fr Cardinal 1 EX500 906559 514323 987109 10 (EX500) Health TR BAND Terumo 1 [id number] 482108 726186 969820 40 Standard ([id number]) Signature Audit [place] [facility] Time Signature Unsigned Intra-Procedure 06/10/2017 Amairani 1:25:20 PM Counts RT(R) Signatures Monitor : Amairani Signature : Counts RT Date : Time : [address] [address]
[2017-06-10] MEDS ORDERED: CATAPRES0.1 MG PO (10:50)
[2017-06-10 10:53] VITALS: BP 149/85; Ht 157.5 cm; Wt 62.7 kg
[2017-06-10 11:10] LABS: BASOPHILS 0.4 % (0-2); EOSINOPHILS 1.7 % (0-7); HEMATOCRIT 37.9 % (36.0-48.0); HEMOGLOBIN 12.9 g/dL (12-16); IMMATURE GRANULOCYTES 0.1 % (0-5); LYMPHOCYTES 38.4 % (15-50); MCH 31.1 pg (26.0-34.0); MCV 91.3 fL (80.0-100.0); MEAN PLATELET VOLUME 10.9 fL (7.4-10.4); MONOCYTES 10.1 % (2-11); NEUTROPHILS 49.3 % (40-80); PLATELET COUNT 196 10x3/uL (130-400); RBC 4.15 10x6/uL (4.00-5.40); RDW 12.6 % (11.5-14.5); WBC 10.7 10x3/uL (4.8-10.8)
[2017-06-10 11:34] LABS: ANION GAP 12.3 mmol/L (8-16); CALCIUM 8.9 mg/dL (8.5-10.1); CARBON DIOXIDE 25.4 mmol/L (21.0-32.0); CREATININE - SERUM 0.9 mg/dL (0.6-1.3); POTASSIUM - SERUM 3.7 mmol/L (3.5-5.1)
== END 2017-06-10 15:30 | disposition home or self-care (01) ==
LOC: D.CATH 10:23
PROVIDERS: Internal Medicine Interventional Cardiology
DX: I20.9 Angina pectoris, unspecified (principal); R94.30 Abnormal result of cardiovascular function study, unspecified; I10 Essential (primary) hypertension; Z01.812 Encounter for preprocedural laboratory examination

== ENCOUNTER → 2017-06-15 09:46 | Outpatient (CLI) | payer MEDICAID ==
[2017-06-10 10:53] VITALS: BMI 25.3
[~2017-06-15 09:46] MED LIST changes: +CATAPRES0.1 MG PO
== END | disposition home or self-care (01) ==
LOC: D.US 09:46
DX: R10.9 Unspecified abdominal pain (principal)

== ENCOUNTER → 2017-07-09 12:02 | Outpatient (CLI) | payer MEDICAID ==
[2017-06-10 10:53] VITALS: BMI 25.3
== END | disposition home or self-care (01) ==
LOC: D.CT 12:02
DX: R10.9 Unspecified abdominal pain (principal)

== ENCOUNTER → 2017-08-06 09:57 | Outpatient (CLI) | payer MEDICAID ==
[2017-06-10 10:53] VITALS: BMI 25.3
== END | disposition home or self-care (01) ==
LOC: D.RAD 08-03 15:30
DX: M25.562 Pain in left knee (principal); M25.561 Pain in right knee

== ENCOUNTER → 2017-09-02 09:21 | Outpatient (CLI) | payer MEDICAID ==
[2017-06-10 10:53] VITALS: BMI 25.3
== END | disposition home or self-care (01) ==
LOC: D.RAD 09:21
DX: M25.551 Pain in right hip (principal)

== ENCOUNTER 2018-06-16 09:00 | Emergency (ER) | payer MEDICAID ==
[~2018-06-16] VITALS: Ht 157.5 cm; Wt 111.8 kg
[2018-06-16 09:14] VITALS: Ht 157.5 cm; Wt 111.8 kg
[2018-06-16] MEDS ORDERED: VOLTAREN75 MG PO (11:30)
[2018-06-16] MEDS ORDERED: BACLOFEN20 M1 PO (11:30)
[2018-06-16 11:48] VITALS: BP 148/84
== END 2018-06-16 11:49 | disposition home or self-care (01) ==
LOC: D.ER 09:00
DX: M54.6 Pain in thoracic spine (principal)